=== PATIENT | male | born 1990 | race Two or more races ===

== ENCOUNTER 2024-05-15 12:11 | Emergency (ER) | payer MEDICAID, SELFPAY ==
[2024-05-15] VITALS (8 sets, daily range): BP systolic 124–142; BP diastolic 77–104; PULSE 94–148; RESP 14–20; TEMP 36.7–37.3; O2SAT 92–98; BMI 32.5
--- NOTE | 2024-05-15 12:37 | PC.NURSE ---
MICHAEL; per EMS report, pt was combative at scene; per family, pt was exhibiting AMS. Pt has hx of epilepsy and family stated that they're concerned that pt possibly had an unwitnessed seizure episode. Pt also has hx of drug abuse. Pt connected to monitors at this time.
--- NOTE | 2024-05-15 12:40 | EDNOTE_ITS ---
ED General RME/HPI General Chief complaint: Altered Mental Status Stated complaint: AMS Time Seen by Provider: 05/15/24 12:24 Arrival date/time: 05/15/24 12:11 CC: Combative altered mental status HPI patient presents to the ER via EMS who report significant tachycardia, after patient was found combative in a home. Family members had called. The patient required multiple people to assist him to 4 point restraints at which time he remained agitated until 4 mg of Versed were given by EMS prior to arrival. At the time of arrival the patient is somnolent but arousable in a stuporous state with a heart rate of 143. Not responding to all questions. EMS states that no PD was involved at this time as it was a call out for a seizure . Reexamination of the patient at 1246, the patient is arousable by tapping his feet, but answers all questions with a simple yes or no. Patient denies pain not aware that he took meth today. not sure what happened. Related Data Previous Rx's ?Medication ?Instructions ?Recorded levetiracetam 500 mg tablet 500 mg PO BID 30 days #60 tabs 02/09/23 lactulose 20 gram oral packet 20 g PO BID #30 ea 05/15/24 levetiracetam 500 mg tablet 500 mg PO BID #30 tabs 05/15/24 (Keppra) Allergies Allergy/AdvReac Type Severity Reaction Status Date / Time No Known Allergies Allergy Verified 11/17/17 21:32 Review of Systems Review of Systems ROS Unobtainable: unobtainable due to mental status Past Medical History Past Medical History NEUROLOGIC: Positive Seizures CARDIAC: Negative Cardiac Disorders or Congestive Heart Failure RESPIRATORY: Negative Chronic Obstructive Pulmonary Disease (COPD) or Asthma GENITOURINARY: Negative Renal Disease ENDOCRINE: Negative Diabetes Mellitus Type 1 or Diabetes Mellitus Type 2 HEMATOLOGIC: Negative Sickle Cell Disease PSYCHO/SOCIAL: Positive Recreational Drug Use (heroin and methadone) Social History SMOKING STATUS: Unknown if ever smoked ED Exam Narrative Physical exam: [General: Somnolent in 4 point restraints s Head normocephalic HEENT: Pupils are PERRLA tracking. All other subsystems of HEENT are within acceptable limits Neck is supple nontender Chest equal chest rise nontender to palpation Respiratory: Clear to auscultation no wheezes crackles or rubs CV: Rate rhythm is regular no murmurs rubs or clicks Abdomen is distended secondary to body habitus soft nontender no masses positive bowel sounds all 4 quadrants Back: No CVA tenderness no spinous process tenderness from cervical spine thoracic and lumbar spine Skin: Intact no petechiae rash induration ulceration or crepitus Extremities: Moving all extremity against resistance cap refill less than 2 seconds neurosensory intact Neuro: Awake Course Course Course Narrative: Multiple assessments of this patient over the last hour, the patient is localizes briskly with sternal rub but is somewhat sullen. I am a reluctant to give Narcan because the patient is on the methadone, and received for his Versed and route. I am concerned about putting this patient into opioid withdrawal. Reassessment of this patient at 1520, the patient continues to be somnolent. Patient given 0.4 of Narcan and immediately woke up, complaining of low back pain which she states is new. Patient is awake alert oriented state he took his methadone this morning. I suspect this in combination with the Versed that was given in the route made him somnolent. Patient is now able to swallow we will give the medications orally. Reassessment of this patient at the 1623, the patient is awake alert easily responding to all questions without complication at this time the patient admits he is taking nothing else but the methadone. This means the patient has not been taking lactulose or the Keppra prescribed to him for his seizure disorder. At this time we will reorder this all for him and he is to follow-up with his primary care provider. Patient to be discharged home. Quality Measures none Orders Category Date Time Status Saline [Insert IV] NOW Care 05/15/24 12:[address] head/brain wo con Stat Exams 05/15/24 14:07 Completed Ammonia Stat Lab 05/15/24 13:09 Completed CBC Stat Lab 05/15/24 12:50 Completed CMP [Comprehensive Metabolic Panel] Stat Lab 05/15/24 12:50 Completed Creatine Kinase Stat Lab 05/15/24 12:50 Completed Drug Screen,Urine Stat Lab 05/15/24 13:06 Completed KCL 10% Liq UDC 15 ML Med 05/15/24 13:50 Discontinued 40 meq GT X1 ONE KCL 10% Liq UDC 15 ML Med 05/15/24 13:50 Discontinued 40 meq GT X1 ONE KCL 10% Liq UDC 15 ML Med 05/15/24 15:33 Discontinued 40 meq GT X1 ONE KCL 10% Liq UDC 15 ML Med 05/15/24 16:19 Discontinued 40 meq GT X1 ONE Lactulose Syrup [Enulose Syrup] Med 05/15/24 14:04 Discontinued 200 gm ND X1 ONE Lactulose Syrup [Enulose Syrup] Med 05/15/24 15:00 Discontinued 200 gm ND X1 ONE Lactulose Syrup [Enulose Syrup] Med 05/15/24 13:38 Discontinued 40 gm PO X1 ONE Lactulose Syrup [Enulose Syrup] Med 05/15/24 15:33 Discontinued 40 gm PO X1 ONE NALOXONE INJ (Syringe) [Narcan Inj (Syringe)] Med 05/15/24 15:12 Discontinued 0.4 mg IV X1 ONE POTASSIUM CHL 10 mEq IVPB [Kcl Ivpb] Med 05/15/24 14:05 Active 10 meq in 100 ml IV Q1H levETIRAcetam INJ [Keppra Inj] Med 05/15/24 12:47 Discontinued 1,000 mg IVP X1 ONE Vital Signs Vital signs: Vital Signs Temperature 98.4 F 05/15/24 12:20 Pulse Rate 148 H 05/15/24 12:20 Respiratory Rate 16 05/15/24 12:20 Blood Pressure 131/77 H 05/15/24 12:20 Pulse Oximetry (%) 95 05/15/24 12:20 Oxygen Delivery Method Room Air 05/15/24 12:20 [facility] Patient data External records reviewed:: [facility] previous records and EMS form Clinical information provided by:: patient and EMS Social determinants that could affect healthcare access:: none Patient has the following chronic illnesses:: Seizure disorder How is presenting disease/condition affected by chronic disease/condition?: e xacerbated by Evaluation data The following diagnostics were reviewed and interpreted by me:: lab results and radiology exam(s) Lab and/or radiology exams considered but not ordered:: CBC shows no significant leukocytosis anemia thrombocytopenia CMP shows hypokalemia no other electrolyte imbalances renal impairment transaminitis or T. bili elevation CT of the head is interpreted by me read by radiology as negative for any acute finding Ammonia level is elevated at 81 Interpretation Summary: Patient had significant somnolent secondary to taking his methadone this morning as well as receiving Versed and route. Agitation was most likely secondary to his seizure with a postictal period although this was not witnessed however we did find out later in the admission that the patient has been noncompliant with seizure medication and the lactulose. Patient will not be discharged home with refilled medication prescription Medications Medications considered but not ordered:: None Medication administrations:: Medication Administration History Potassium Chloride (Kcl Ivpb) 10 meq in 100 mls @ 100 mls/hr IV Q1H WILFREDO Stop: 05/15/24 18:04 Last Admin: 05/15/24 16:11 Dose: Not Given Documented By: GM Non-Admin Reason: Cancelled by Provider Admin: 05/15/24 16:11 Dose: Not Given Documented By: GM Non-Admin Reason: Cancelled by Provider Admin: 05/15/24 15:00 Dose: 100 mls/hr Documented By: GM Discontinued Medications Lactulose (Lactulose Syrup 20 Gm/30 Ml Udc) 40 gm PO X1 ONE; Protocol Stop: 05/15/24 13:39 Last Admin: 05/15/24 14:54 Dose: Not Given Documented By: GM Non-Admin Reason: Discontinued Lactulose (Lactulose Syrup 20 Gm/30 Ml Udc) 200 gm ND X1 ONE; Protocol Stop: 05/15/24 14:05 Last Admin: 05/15/24 16:11 Dose: Not Given Documented By: GM Non-Admin Reason: Cancelled by Provider Lactulose (Lactulose Syrup 10 Gm/15 Ml) 200 gm ND X1 ONE; Protocol Stop: 05/15/24 15:01 Last Admin: 05/15/24 16:12 Dose: Not Given Documented By: GM Non-Admin Reason: Discontinued Lactulose (Lactulose Syrup 20 Gm/30 Ml Udc) 40 gm PO X1 ONE; Protocol Stop: 05/15/24 15:34 Last Admin: 05/15/24 16:09 Dose: 40 gm Documented By: GM Levetiracetam (Levetiracetam Inj 100 Mg/Ml Vial 5ml) 1,000 mg IVP X1 ONE Stop: 05/15/24 12:48 Last Admin: 05/15/24 12:55 Dose: 1,000 mg Documented By: GM Naloxone HCl (Naloxone Inj 1 Mg/Ml Syringe 2 Ml) 0.4 mg IV X1 ONE Stop: 05/15/24 15:13 Last Admin: 05/15/24 15:16 Dose: 0.4 mg Documented By: ABIGAIL Potassium Chloride (Potassium Chloride 10% 20 Meq/15 Ml Udc) 40 meq GT X1 ONE Stop: 05/15/24 13:51 Last Admin: 05/15/24 14:54 Dose: Not Given Documented By: MIKE Non-Admin Reason: Duplicate Medication on eMAR Potassium Chloride (Potassium Chloride 10% 20 Meq/15 Ml Udc) 40 meq GT X1 ONE Stop: 05/15/24 13:51 Last Admin: 05/15/24 14:54 Dose: Not Given Documented By: MIKE Non-Admin Reason: Discontinued Potassium Chloride (Potassium Chloride 10% 20 Meq/15 Ml Udc) 40 meq GT X1 ONE Stop: 05/15/24 15:34 Last Admin: 05/15/24 16:10 Dose: 40 meq Documented By: MIKE Comments: Per Mya Dior KNURLING MACHINE TENDER, ok to give PO. Potassium Chloride (Potassium Chloride 10% 20 Meq/15 Ml Udc) 40 meq GT X1 ONE Stop: 05/15/24 16:20 None Consultations Consultation(s) initiated? (list below): No Diagnosis Differential Diagnosis ED Complaint MDM: Hypokalemia elevated ammonia level seizure disorder Most likely diagnosis given after review of the tests above:: Hypokalemia elevated ammonia seizure disorder Admission Indicated Admission indicated?: not indicated Explain why admission is indicated or not indicated:: Stable for outpatient follow-up Admission Request Was there a request for admission?: No Disposition Plan Disposition Plan: Discharge Discharge Attestation Discharge Attestation: The patient and all family members were given an opportunity to ask questions and understood the discharge instructions. Discharge instructions specifically effects, indications for sooner follow up or return to the emergency department, and the expected course of current diagnosis. Patient condition: Stable Medical Decision Making Differential Diagnosis Differential Diagnosis: Hypokalemia elevated ammonia level seizure disorder Lab Data 05/15/24 12:50 05/15/24 12:50 Labs: Lab Results 05/15/24 05/15/24 05/15/24 Range/Units 12:50 13:06 13:09 WBC 17.6 H (3.8-10.6) Thou/mm3 RBC 4.92 (4.50-5.90) Miln/mm3 Hgb 14.9 (13.5-16.0) g/dL Hct 42.8 (41.0-53.0) % MCV 87 (80-100) fL MCH 30.3 (25.0-35.0) pg MCHC 34.8 (31.0-37.0) g/dl RDW Std Deviation 39.3 (35.1-43.9) fL Plt Count 280 (140-440) Thou/mm3 Neut % (Auto) 69 (37-80) % Lymph % (Auto) 24 (10-50) % [place] % (Auto) 5 (0-12) % Eos % (Auto) 0 (0-10) % Baso % (Auto) 1 (0-2.5) % Neut # (Auto) 12.1 H (1.8-7.7) Thou/mm3 Lymph # (Auto) 4.2 (1.0-4.8) Thou/mm3 [place] # (Auto) 0.9 H (0.0-0.8) Thou/mm3 Eos # (Auto) 0.1 (0.0-0.5) Thou/mm3 Baso # (Auto) 0.1 (0.0-0.2) Thou/mm3 Immature Gran # (Auto) 0.28 H (0.00-0.00) Thou/mm3 Absolute Nucleated RBC 0.00 (0.00-0.00) Thou/mm3 Immature Gran % 2 H (0-0) % Nucleated RBC % 0 (0) /100 WBC Sodium 134 L (136-145) mMol/L Potassium 2.7 L* (3.4-5.1) mMol/L Chloride 99 (98-107) mMol/L Carbon Dioxide 18.8 L (20.0-31.0) mMol/L Anion Gap 16 (7-16) BUN 14 (9-23) mg/dL Creatinine 1.2 (0.6-1.3) mg/dL Estim Creat Clear Calc 101.0 (>60) mL/min eGFR > 60 (60 - ) See Note BUN/Creatinine Ratio 12 (12-20) Ratio Glucose 238 H (74-106) mg/dL Calculated Osmolality 276 (275-295) Calcium 9.4 (8.3-10.6) mg/dL Corrected Calcium 9.4 (8.5-10.1) mg/dL Total Bilirubin 0.6 (0.3-1.2) mg/dL AST 36 H (0-34) U/L ALT 77 H (10-49) U/L Alkaline Phosphatase 79 (46-116) U/L Ammonia 81 H* (11-32) uMol/L Total Creatine Kinase 158 (34-171) U/L Total Protein 7.5 (5.7-8.2) gm/dL Albumin 5.0 (3.5-5.0) gm/dL Globulin 2.5 (2.3-3.5) gm/dL Albumin/Globulin Ratio 2.0 (1.2-2.2) Urine Opiates Screen Negative (Negative) Urine Fentanyl Screen Negative (Negative) Ur Barbiturates Screen Negative (Negative) U Amphetamin/Meth Scrn Negative (Negative) U Benzodiazepines Scrn Negative (Negative) U Cocaine Metab Screen Negative (Negative) U Marijuana (THC) Screen Negative (Negative) Discharge Plan Plan Patient Disposition: HOME (Self Care) Patient condition on transfer: Stable Prescriptions/Referrals Prescriptions/Med Rec: New levetiracetam [Keppra] 500 mg tablet 500 mg PO BID Qty: 30 1RF lactulose 20 gram packet 20 g PO BID Qty: 30 1RF No Action levetiracetam 500 mg tablet 500 mg PO BID 30 Days Qty: 60 1RF Referrals: Gage Villagomez MD [Physician] - In 1 week No Primary/Family,Physician [Primary Care Provider] - In 1 week Davin Aviles MD [Physician] - In 1 week Problem List Clinical Impression: Seizure disorder, Altered mental status, Increased ammonia level Patient/Caregiver Discharge Instructions Other Activity Instructions:: Take all medications prescribed to you and that you have at home as prescribed do not run out follow-up with your primary care provider for refills of your seizure medicine and your lactulose. Education Materials: Ammonia, Self-Care for Epilepsy Print Language: Wallisian Stand Alone Forms: Candice Award Info., Work/School Release, Patient Portal Info Letter RAJ/SANA Supervising Physician RAJ/SANA Supervising Physician: Mayo Dior ENP
[2024-05-15] MEDS: levETIRAcetam INJ 100 MG/ML VIAL 5ML 1000 MG IVP (12:55)
[2024-05-15 13:14] LABS: Basophils # (Auto) 0.1 Thou/mm3 (0.0-0.2); Basophils % (Auto) 1 % (0-2.5); Eosinophils # (Auto) 0.1 Thou/mm3 (0.0-0.5); Eosinophils % (Auto) 0 % (0-10); Hematocrit 42.8 % (41.0-53.0); Hemoglobin 14.9 g/dL (13.5-16.0); Immature Granulocytes % (Auto) 2 % (0-0); Immature Granulocytes Auto 0.28 Thou/mm3 (0.00-0.00); Lymphocytes # (Auto) 4.2 Thou/mm3 (1.0-4.8); Lymphocytes % (Auto) 24 % (10-50); Mean Corpuscular HGB Conc 34.8 g/dl (31.0-37.0); Mean Corpuscular Hemoglobin 30.3 pg (25.0-35.0); Mean Corpuscular Volume 87 fL (80-100); Monocytes # (Auto) 0.9 Thou/mm3 (0.0-0.8); Monocytes % (Auto) 5 % (0-12); Neutrophils # (Auto) 12.1 Thou/mm3 (1.8-7.7); Neutrophils % (Auto) 69 % (37-80); Nucleated Red Blood Cell % 0 /100 WBC (0); Platelet Count 280 Thou/mm3 (140-440); RDW Standard Deviation 39.3 fL (35.1-43.9); Red Blood Count 4.92 Miln/mm3 (4.50-5.90); White Blood Count 17.6 Thou/mm3 (3.8-10.6)
[2024-05-15 13:23] LABS: Amphetamine/Methamp Scrn,U Negative (Negative); Barbiturate Screen,Urine Negative (Negative); Benzodiazepines Screen,Urine Negative (Negative); Benzoylecgonine Screen, Ur Negative (Negative); Fentanyl Screen,Urine Negative (Negative); Opiate Screen,Urine Negative (Negative); THC Screen,Urine Negative (Negative)
[2024-05-15 13:34] LABS: Ammonia 81 uMol/L (11-32)
[2024-05-15 13:36] LABS: Alanine Aminotransferase 77 U/L (10-49); Alkaline Phosphatase 79 U/L (46-116); Anion Gap 16 (7-16); Aspartate Amino Transferase 36 U/L (0-34); BUN/Creatinine Ratio 12 Ratio (12-20); Bilirubin,Total 0.6 mg/dL (0.3-1.2); Blood Urea Nitrogen 14 mg/dL (9-23); Calcium 9.4 mg/dL (8.3-10.6); Calcium (Corrected) 9.4 mg/dL (8.5-10.1); Carbon Dioxide 18.8 mMol/L (20.0-31.0); Chloride 99 mMol/L (98-107); Creatine Kinase 158 U/L (34-171); Creatinine (Component) 1.2 mg/dL (0.6-1.3); Globulin 2.5 gm/dL (2.3-3.5); Glucose 238 mg/dL (74-106); Osmolality,Calculated 276 (275-295); Sodium 134 mMol/L (136-145); Total Protein 7.5 gm/dL (5.7-8.2); eGFR > 60 See Note
[2024-05-15 13:38] LABS: Potassium 2.7 mMol/L (3.4-5.1)
--- NOTE | 2024-05-15 14:07 | XR_ITS ---
Examination: CT brain head without contrast. 2-D sagittal coronal reconstructions Date and time of exam:May 15, 2024 1423 hours Comparison 01/31/2023 INDICATIONS: Altered mental status today CTDI: vol (mGy):50.4 DLP: (mGycm):1136 Technique: Multiple CT axial sections of the brain have been obtained, 5 mm slice thickness. Contrast has not been administered. 2-D sagittal, coronal reconstructions have been obtained Low dose protocols were performed. One or more of the following dose reduction techniques were used; automated exposure control, adjustment of the mA and/or KV according to patient size, use of iterative reconstruction technique. Findings: No significant ventricular enlargement. Intra-axial or extra-axial hemorrhage density is not seen. No mass effect or midline shift Basal cisterns are not remarkable. Fourth ventricle is midline. Cranial vault intact. Impression: Negative for acute hemorrhage, mass effect or midline shift
[2024-05-15] MEDS: POTASSIUM CHL 10 mEq IVPB 10 MEQ/100 ML BAG 100 MEQ IV (15:00)
[2024-05-15] MEDS: NALOXONE INJ 1 MG/ML SYRINGE 2 ML 0.4 MG IV (15:16)
[2024-05-15] MEDS: LACTULOSE SYRUP 20 GM/30 ML UDC 40 GM PO (16:09)
[2024-05-15] MEDS: POTASSIUM CHLORIDE 10% 20 MEQ/15 ML UDC 40 MEQ GT ×2 (16:10→16:34)
--- NOTE | 2024-05-15 16:30 | PC.NURSE ---
Pt's mother, Suki, called at this time and informed pt will be ready for discharge and if family can come pick pt up. 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 Mya Dior POST OFFICE MARKUP CLERK made aware.
== END 2024-05-15 17:40 | disposition home or self-care (01) ==
PROVIDERS: Registered Nurse General Practice; Emergency Provider Emergency Medicine
DX: E72.20 Disorder of urea cycle metabolism, unspecified (principal); R41.82 Altered mental status, unspecified; R56.9 Unspecified convulsions
CPT/HCPCS: 51701; 36415; 70450; 80053; 80307; 82140; 82550; 85025; 96365; 96375; 99284; J1953; J2310; J3480; A9270